=== PATIENT | male | born 1990 | race Caucasian/White ===

== ENCOUNTER 2025-05-31 16:23 | Emergency (ER) | payer SELFPAY ==
[2025-05-31 18:01] VITALS: BP 154/73; PULSE 84; RESP 18; TEMP 36.9; O2SAT 98; BMI 24.6
--- NOTE | 2025-05-31 18:10 | ED_ITS ---
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 Patient states audition was painful for his throat and ever since has had throat pain. Patient denies any chest pain, shortness of breath, neck swelling, drooling, change in voice, weight loss, night sweats, fever, or chills. Patient has a appointment with ENT check his larynx and vocal cord on 06/08. Patient has secondary complaint was couple weeks ago his oral temperature was 93 degrees and blood pressure was elevated at urgent care. Patient denies any headache chest pain facial droop slurred speech shortness of breath or loss of vision. Patient denies any paralysis of extremi ties Related Data Allergies Allergy/AdvReac Type Severity Reaction Status Date / Time bupropion (From Wellbutrin) Allergy Unknown Verified 05/31/25 18:07 Review of Systems Review of Systems: Sore throat Yes all other systems are reviewed and are negative PMFSH Social History Social History Advance Directives: No Advance Directives Information Provided: No Do you have a plan to hurt others: No Plan Physical Exam ED Vital Signs: Vital Signs - 24 hr 05/31/25 18:01 05/31/25 19:59 Temperature 98.4 F 97.9 F Pulse Rate 84 67 Respiratory Rate 18 17 Blood Pressure 154/73 H 124/79 Pulse Oximetry 98 97 Oxygen Delivery Method Room Air Room Air BMI result Body Mass Index 24.6 Const General: cooperative, healthy appearing, comfortable, no acute distress, well developed, alert, awake and Physically active Orientation/consciousness: patient oriented x3 HENMT Head: Yes normal to inspection, Yes No palpable skull fracture present, Yes normocephalic and Yes atraumatic Ears: hearing grossly normal bilaterally, external ears normal, TM's normal bilaterally, TM normal on the right, TM normal on the left, EAC's normal, mastoids normal and no periauricular adenopathy Throat: Yes posterior oropharynx normal, Yes tonsils normal and Yes uvula midline Eyes General: appearance normal, both eyes and all related structures Neck Neck: Yes normal visual inspection, Yes full ROM, Yes no lymphadenopathy, Yes no meningeal signs, Yes trachea midline, Yes supple, No anterior neck swelling and No tender Chest Chest palpation & inspection: normal inspection of the chest and normal palpation of entire chest wall Resp Effort & Inspection: normal respiratory effort and able to speak in complete sentences Auscultation: clear to auscultation bilaterally Cardio Jugular venous distension: no JVD Heart sounds: S1 normal heart sound present and S2 normal heart sound present GI Inspection: Yes normal to inspection Palpation (GI): Soft to palpation, not firm, nontender, no guarding and not rigid General: Yes no CVA tenderness Back/Spine/Pelvis Back: no CVA tenderness and No back tenderness Skin General skin exam: no rashes or lesions noted, elasticity normal and turgor normal Neuro General: patient oriented x3, gait normal, tone normal, moves all extremities, Normal light touch and pain sensation, no meningeal signs, no focal motor deficits, CN's II-XI intact bilaterally and normal sensation to monofilament Extrem General: Yes normal to inspection, Yes full ROM and Yes capillary refill normal Psych Appearance: grossly normal, well kempt and not disheveled Course Course Course Narrative: RME: 34 yold male presents to the ED for low oral temperatue and elevated blood pressure at urgent care couple of weaks ago. patient presently vital signs are stable. Patient patient has secondary complaint is sore throat for the past 2 months ever since he tried out for band with strong hoarse singing. Patient states he was seen in [place] for [place] his throat and vocal cords. Patient has follow up with ENT specialist to check his vocal cord and larynx. Patient denies any fever or chills. SARs strep ordered Medical Decision Making Medical Decision Making MDM Narrative: [age] year male presents to ED for sore throat for 2 months ever since Toradol addition for or hard sitting in bed. Patient is states loop temperature of a blood pressure weeks ago at urgent care. Presently vital signs are stable. Physical exam negative for signs of peritonsillar abscess, Gino's angina, retropharyngeal abscess, carotid or vertebral dissection, [place], PE, epiglottis, sepsis, allergic reaction, anaphylaxis or any other life-threatening etiology. COVID influenza strep negative. Patient informed me with ENT specialist who checked his vocal cords and larynx on the 24th. Patient explained worrisome signs informed return to the ED immediate Differential Diagnosis Differential Diagnoses: The differential diagnosis associated with the presentation includes (COVID influenza strep pharyngitis) Admission/Observation Consideration of admission/observation: Escalation of care including admission/observation considered Lab Data MDM Lab Attestation statement: I reviewed the patient's lab results. Labs: Lab Results 05/31/25 Range/Units 18:18 COVID-19 (CHANELLE) Negative (Negative) COVID-19 Clin Com See Note Influenza Type A (THANH) Negative (Negative) Influenza Type B (THANH) Negative (Negative) Influenza A & B Note See Note S. pyogenes GrpA THANH Negative (Negative) Independent Historian Clinical information obtained from an independent historian. History obtained from or confirmed by: Other (Patient is) Prescription Management I considered prescription management with: Pain Medication Discharge Plan Discharge Clinical Impression: Sore throat, Laryngitis Patient Disposition: Home, Self-Care Instructions: Strep Throat (ED) Additional Instructions: Recommend follow-up with primary care provider. Recommend keeping your appointment with ENT specialist to evaluate your vocal cords/larynx. Return to the ED immediately for neck swelling, drooling, chest pain, shortness of breath, fever, chills, or any other concerning symptoms. Stand Alone Forms: Work/School Release Interventions: ED Discharge Assessment Last Done: 05/31/25 19:59 Discharge Date/Time: 05/31/25 20:13 Print Language: Kiswahili
[2025-05-31 18:35] LABS: IDNOW Serial# 16C4AD1C; Strep A Nucleic Acid Negative (Negative)
[2025-05-31 19:06] LABS: COVID-19 Test Negative (Negative); IDNOW Serial# 08D9AD1C; IDNOW Serial# 6674DD1D; Influenza B2 Negative (Negative)
[2025-05-31 19:59] VITALS: BP 124/79; PULSE 67; RESP 17; TEMP 36.6; O2SAT 97
--- OUTSIDE RECORDS SUMMARY | 2025-05-31 20:25 | XMS_ITS | Clinical Summary ---
Author Organization [facility] Address [address] [id number] Phone Care Team Providers Care School Transportation Director Name Role Phone Unknown, Unknown Primary Care Provider Patriciavai lable Allergies No known active allergies Medications No known medications Active Problems No known active problems Immunizations Immunization Administration Dates Next Due Influenza Quadrivalent Preservative Free IM 04/16 Family History Medical History Relation Comments Coronary artery disease Maternal Grandfather Cor onary Artery Disease Coronary artery disease Maternal Grandmother Cor onary Artery Disease Relation Status Comments Maternal Grandfather Maternal Grandmother Social History Tobacco Use Types Packs/Day Years Used Date Smoking Tobacco: Never Education Answer Date Recorded Are you interested in more education? Not on zabrina e 04/27/2025 Are you concerned about learning? Not on file 04/27/2025 No 04/27/2025 No 04/27/2025 Digital Access Answer Date Recorded No 04/27/2025 No 04/27/2025 Reliable internet access at home? Not on file 04/27/2025 Device with a working camera? Not on file Sex and Gender Information Value Date Recorded Sex Assigned at Not on file Legal Sex Male 9:46 AM EST Gender Identity Not on file Sexual Orientation Not on file Last Filed Vital Signs Vital Sign Reading Time Taken Comments Blood Pressure 124/59 01/04/2015 4:21 PM EDT Pulse 61 01/04/2015 4:21 PM EDT Temperature 36.4 C (97.5 F) 08/17/2014 4:18 PM EST Respiratory Rate - - Oxygen Saturation - - Inhaled Oxygen Concentration - - Weight 69.6 kg (153 lb 8 oz) 04/26/2014 11:20 AM EST Height 172.7 cm (5' 8 ) 04/26/2014 11:20 AM EST Body Mass Index 23.34 04/26/2014 11:20 AM EST Plan of Treatment Health Maintenance Due Date Last Done Comments Adult Td,Tdap Booster 1991 DEPRESSION SCREENING 2003 SMOKING Hx and SMOKELESS TOB ACCO SCREENING 2004 HEPATITIS C SCREENING 2009 HIV ONE-TIME SCREENING (18-6 5 YEARS) 2009 INFLUENZA VACCINE (#1) 2025 04/26/2014 COVID-19 VACCINE (2024-2 6 season) 2025 HEPATITIS A VACCINES Aged Out No long er eligible based on patient's age to complete this topic HIB VACCINES Aged Out No longer eligi ble based on patient's age to complete this topic MENINGOCOCCAL VACCINES (ACWY) Aged Out No longer eligible based on patient's age to complete this topic MENINGOCOCCAL VACCINES (B) Aged Out N o longer eligible based on patient's age to complete this topic PNEUMOCOCCAL VACCINES (0-49 years) Aged Out No longer eligible based on patient's age to complete this topic Medical Devices Not on file Insurance [facility] POS EPO [address] [place], [place] [address] POS EPO [address] [place] [address] POS EPO POS EPO [facility] [place] [address] [place] [address] [facility] Care Teams School Transportation Director Relationship Specialty Start Date End Date Unknown, Unknown, PCP - General 12/29/18 Additional Source Comments The information contained in this document represents components of the legal health record. It is not the complete legal health record.[facility]
== END 2025-05-31 20:13 | disposition home or self-care (01) ==
PROVIDERS: Physician Assistant; Emergency Provider Student in an Organized Health Care Education/Training Program
DX: J04.0 Acute laryngitis (principal); J02.9 Acute pharyngitis, unspecified; Z03.818 Encounter for observation for suspected exposure to other biological agents ruled out
CPT/HCPCS: 87502; 87635; 87651; 99282; 99283